=== PATIENT | female | born 1980 ===

== ENCOUNTER 2017-08-21 01:54 | Emergency (ER) | payer MEDICAID, OTHER ==
[2017-08-21 01:54] VITALS: BMI 25.4
[2017-08-21 02:09] VITALS: BP 114/75; PULSE 81; RESP 16; TEMP 98.6; O2SAT 100
--- NOTE | 2017-08-21 03:36 | ED PDOC ---
HPI: Psych/Substance Abuse Time Seen by Provider: 08/21/17 02:01 Chief Complaint (Nursing): Anxiety Chief Complaint (Provider): Anxiety History Per: Patient History/Exam Limitations: no limitations Onset/Duration Of Symptoms: Days (14 days ago) Current Symptoms Are (Timing): Still Present Additional Complaint(s): 36 y/o female with a history of anxiety and depression, presents to the ED complaining of anxiety with panic attack episodes, onset of 14 days ago. Patient reports of having trouble sleeping, and reports feeling nervous and having these panic attack episodes throughout the day, stemming from the little sleep she gets. Patient is currently not feeling depressed. She also states that she recently started and quit her new job because she couldn't handle all the stress. Of note, patient was seen at [facility] and had blood work and chest x-ray done, but was discharged without any prescription. Past Medical History Reviewed: Historical Data, Nursing Documentation, Vital Signs Vital Signs: Last Vital Signs Temp 98.6 F 08/21/17 02:03 Pulse 81 08/21/17 02:03 Resp 16 08/21/17 02:03 BP 114/75 08/21/17 02:03 Pulse Ox 100 08/21/17 02:03 - Medical History PMH: Anxiety, Depression Denies: Chronic Kidney Disease - Surgical History Surgical History: Cholecystectomy - Family History Family History: States: Unknown Family Hx - Social History Current smoker - smoking cessation education provided: No Ex-Smoker (has not smoked in the last 12 months): No Alcohol: None Drugs: Denies - Immunization History Hx Tetanus Toxoid Vaccination: No Hx Influenza Vaccination: No Hx Pneumococcal Vaccination: No - Home Medications Home Medications: Ambulatory Orders Medication Instructions Recorded Ergocalciferol (Vitamin D2) 50,000 unit PO QWK 08/20/16 [Vitamin D2] oxyCODONE/Acetaminophen [Percocet 1 tab PO Q4 PRN #14 tab 08/20/16 5/325 mg Tab] oxyCODONE/Acetaminophen [Percocet 5 - 325 mg PO Q4 PRN 08/20/16 5/325 mg Tab] Zolpidem [Ambien] 5 mg PO HS #10 tab 08/21/17 - Allergies Allergies/Adverse Reactions: Allergies Allergy/AdvReac Type Severity Reaction Status Date / Time almond Allergy Verified 01/22/18 09:00 Review of Systems ROS Statement: Except As Marked, All Systems Reviewed And Found Negative Constitutional: Negative for: Fever Cardiovascular: Negative for: Chest Pain Respiratory: Negative for: Shortness of Breath Neurological: Negative for: Other (syncope) Physical Exam - Reviewed Nursing Documentation Reviewed: Yes Vital Signs Reviewed: Yes - Physical Exam Appears: Positive for: Non-toxic, No Acute Distress Head Exam: Positive for: ATRAUMATIC, NORMAL INSPECTION Skin: Positive for: Normal Color, Warm Eye Exam: Positive for: Normal appearance, EOMI, PERRL ENT: Positive for: Normal ENT Inspection Neck: Positive for: Normal, Painless ROM, Supple Cardiovascular/Chest: Positive for: Regular Rate, Rhythm. Negative for: Murmur Respiratory: Positive for: Normal Breath Sounds. Negative for: Respiratory Distress Gastrointestinal/Abdominal: Positive for: Normal Exam, Soft. Negative for: Tenderness Back: Positive for: Normal Inspection Extremity: Positive for: Normal ROM. Negative for: Pedal Edema, Deformity Neurologic/Psych: Positive for: Alert, Oriented. Negative for: Motor/Sensory Deficits - ECG O2 Sat by Pulse Oximetry: 100 (RA) Pulse Ox Interpretation: Normal Medical Decision Making Medical Decision Making: Time: --02:54 Impression: --Anxiety and panic disorder Plan: --Crisis Evaluation Reassess --03:33 patient was evaluated by crisis, Dr. Monique, and will be discharged. Diagnosis: Anxiety Scribe Attestation: Documented by Matthew Lopes acting as a scribe for Dinh Padilla MD. Disposition - Clinical Impression Clinical Impression: Anxiety disorder - Patient ED Disposition Is Patient to be Admitted: No - Disposition Referrals: [facility] [Outside] Maria Esther Hollis MD [Primary Care Provider] - Disposition: Routine/Home Disposition Time: 03:37 Condition: GOOD Prescriptions: Zolpidem [Ambien] 5 mg PO HS #10 tab Instructions: Anxiety (ED) Print Language: MALAWIAN
== END 2017-08-21 05:00 | disposition home or self-care (01) ==
LOC: H.ER 01:54
DX: F41.0 Panic disorder [episodic paroxysmal anxiety] (principal); Z87.891 Personal history of nicotine dependence; Z86.59 Personal history of other mental and behavioral disorders

== ENCOUNTER 2018-01-20 12:58 | Emergency (ER) | payer SELFPAY ==
[2018-01-20 12:58] VITALS: BMI 25.4
[2018-01-20 13:16] VITALS: RESP 20
[2018-01-20 14:11] LABS: BASO # 0.1 K/uL (0.0-0.2); BASO % 0.7 % (0.0-2.0); EOS # 0.1 K/uL (0.0-0.7); EOS % 1.3 % (0.0-4.0); HEMOGLOBIN 14.4 g/dL (12.0-16.0); LYMPH # 1.7 K/uL (1.0-4.3); LYMPH % 22.5 % (20.0-40.0); MEAN CELL VOLUME 91.3 fl (81.0-99.0); MEAN CORPUSCULAR HEMOGLOBIN 31.3 pg (27.0-31.0); MEAN CORPUSCULAR HGB CONC 34.3 g/dL (33.0-37.0); MEAN PLATELET VOLUME 9.5 fl (7.2-11.7); MONO # 0.5 K/uL (0.0-0.8); MONO % 6.2 % (0.0-10.0); NEUT # 5.3 K/uL (1.8-7.0); NEUT % 69.3 % (50.0-75.0); RBC 4.59 Mil/uL (3.80-5.20); WHITE BLOOD COUNT 7.7 K/uL (4.8-10.8)
[2018-01-20 14:19] LABS: PARTIAL THROMBOPLASTIN TIME 34.9 Seconds (25.6-37.1); PROTHROMBIN TIME 11.4 Seconds (9.8-13.1)
[2018-01-20 14:21] LABS: ALB/GLOB RATIO 1.4 (1.0-2.1); ALBUMIN 4.6 g/dL (3.5-5.0); ALT/SGPT 37 U/L (9-52); AST/SGOT 19 U/L (14-36); BLOOD UREA NITROGEN 12 mg/dl (7-17); CALCIUM 9.5 mg/dL (8.4-10.2); GFR AFRICAN-AMERICAN > 60; GFR NON-AFRICAN AMERICAN > 60
[2018-01-20 14:32] LABS: B-TYPE NATRIURETIC PEPTIDE 38.2 pg/ml (0-450)
--- NOTE | 2018-01-20 14:58 | RAD ---
HISTORY: chest pain/ r/o infiltrate COMPARISON: Comparison made with chest radiograph dated 02/27/2016. TECHNIQUE: Chest PA and lateral FINDINGS: LUNGS: No active pulmonary disease. Again noted is a small calcified granuloma left lateral lower lung field. PLEURA: No significant pleural effusion identified. No pneumothorax apparent. CARDIOVASCULAR: Normal. OSSEOUS STRUCTURES: No significant abnormalities. VISUALIZED UPPER ABDOMEN: Normal. OTHER FINDINGS: None. IMPRESSION: No acute infiltrates. Small calcified granuloma left lateral lower lung field.
--- NOTE | 2018-01-20 15:08 | ED PDOC ---
HPI: Chest Pain Time Seen by Provider: 01/20/18 13:32 Chief Complaint (Nursing): Palpitations Chief Complaint (Provider): Palpitations History Per: Patient History/Exam Limitations: no limitations Onset/Duration Of Symptoms: Days Current Symptoms Are (Timing): Better Additional Complaint(s): 37 year old female with a history of anxiety presents to the ED complaining of sudden onset chest discomfort while cleaning furniture. Reports the symptoms lasted for several minutes with dizziness. Patients states the symptoms have improved upon arrival to the ED and states the symptoms are similar to prior anxiety in the past. However, the dizziness is new. Denies difficulty breathing , leg swelling or family history of blood clots. PMD: Yamileth Abad Past Medical History Reviewed: Historical Data, Nursing Documentation, Vital Signs Vital Signs: Last Vital Signs Temp 98 F 01/20/18 15:52 Pulse 78 01/20/18 15:52 Resp 20 01/20/18 15:52 BP 120/70 01/20/18 15:52 Pulse Ox 98 01/20/18 15:52 - Medical History PMH: Anxiety, Depression Denies: Diabetes, Hepatitis, HIV, HTN, Chronic Kidney Disease, Seizures, Sexually Transmitted Disease - Surgical History Surgical History: Cholecystectomy - Family History Family History: States: Unknown Family Hx - Social History Current smoker - smoking cessation education provided: No Alcohol: None Drugs: Denies - Immunization History Hx Tetanus Toxoid Vaccination: No Hx Influenza Vaccination: No Hx Pneumococcal Vaccination: No - Home Medications Home Medications: Ambulatory Orders Medication Instructions Recorded Ergocalciferol (Vitamin D2) 50,000 unit PO QWK 08/20/16 [Vitamin D2] oxyCODONE/Acetaminophen [Percocet 1 tab PO Q4 PRN #14 tab 08/20/16 5/325 mg Tab] oxyCODONE/Acetaminophen [Percocet 5 - 325 mg PO Q4 PRN 08/20/16 5/325 mg Tab] ALPRAZolam [Xanax] 0.25 mg PO DAILY PRN #5 tab 08/21/17 Zolpidem [Ambien] 5 mg PO HS #10 tab 08/21/17 Alprazolam [Xanax] 0.25 mg PO BID PRN #4 tablet 01/20/18 - Allergies Allergies/Adverse Reactions: Allergies Allergy/AdvReac Type Severity Reaction Status Date / Time almond Allergy ITCHING Verified 01/20/18 13:11 Review of Systems ROS Statement: Except As Marked, All Systems Reviewed And Found Negative Cardiovascular: Positive for: Chest Pain, Palpitations Respiratory: Negative for: Other (difficulty breathing) Neurological: Positive for: Dizziness Psych: Positive for: Anxiety Physical Exam - Reviewed Nursing Documentation Reviewed: Yes - Physical Exam Appears: Positive for: Non-toxic, No Acute Distress Head Exam: Positive for: ATRAUMATIC, NORMAL INSPECTION, NORMOCEPHALIC Skin: Positive for: Normal Color, Warm, Dry Eye Exam: Positive for: EOMI, Normal appearance, PERRL ENT: Positive for: Normal ENT Inspection Neck: Positive for: Normal, Painless ROM, Supple. Negative for: Decreased ROM Cardiovascular/Chest: Positive for: Regular Rate, Rhythm. Negative for: Murmur Respiratory: Positive for: Normal Breath Sounds. Negative for: Decreased Breath Sounds, Accessory Muscle Use, Respiratory Distress Gastrointestinal/Abdominal: Positive for: Normal Exam, Bowel Sounds, Soft. Negative for: Tenderness, Guarding, Rebound Back: Positive for: Normal Inspection. Negative for: L CVA Tenderness, R CVA Tenderness Extremity: Positive for: Normal ROM. Negative for: Tenderness, Pedal Edema, Deformity Neurologic/Psych: Positive for: Alert, Oriented (x3). Negative for: Motor/ Sensory Deficits - Laboratory Results Result Diagrams: 01/20/18 14:00 01/20/18 14:00 - ECG ECG: Positive for: Interpreted By Me, Viewed By Me ECG Rhythm: Positive for: Sinus Rhythm Interpretation Of ECG: no acute changes Rate: 81 O2 Sat by Pulse Oximetry: 99 Medical Decision Making Medical Decision Making: Time: 1347 Initial Plan: --EKG --B-type Natriuretic Peptide --Troponin I --CBC w/ Differential --D-Dimer [COAG] --Prothrombin Time [COAG] --PTT --Chest Two Views [RAD] --Ativan 0.5mg IVP --Ativan 0.5mg PO Once --Ativan 1mg PO --Reevaluation Patient provided Ativan for symptoms and she showed improvement. Blood work and EKG present no abnormalities. Followup PMD Heart score 1 Scribe Attestation: Documented by Rivera Edwards, acting as a scribe for Latrell Mena III, DO Provider Scribe Attestation: All medical record entries made by the Scribe were at my direction and personally dictated by me. I have reviewed the chart and agree that the record accurately reflects my personal performance of the history, physical exam, medical decision making, and the department course for this patient. I have also personally directed, reviewed, and agree with the discharge instructions and disposition. Disposition - Clinical Impression Clinical Impression: Palpitations, Anxiety - Patient ED Disposition Is Patient to be Admitted: No Counseled Patient/Family Regarding: Studies Performed, Diagnosis, Need For Followup, Rx Given (xanax rescue medication #4 only) - Disposition Referrals: [facility] [Outside] Disposition: Routine/Home Disposition Time: 15:40 Condition: STABLE Additional Instructions: PHANI ARMENDARIZ, thank you for letting us take care of you today. Your provider was Dr Latrell Mena III and you were treated for PALPITATIONS. The emergency medical care you received today was directed at your acute symptoms. If you were prescribed any medication, please fill it and take as directed. It may take several days for your symptoms to resolve. Return to the Emergency Department if your symptoms worsen, do not improve, or if you have any other problems. Please contact your doctor or call one of the physicians/clinics you have been referred to that are listed on the Patient Visit Information form that is included in your discharge packet. Bring any paperwork you were given at discharge with you along with any medications you are taking to your follow up visit. Our treatment cannot replace ongoing medical care by a primary care provider outside of the emergency department. Thank you for allowing the [facility] team to be part of your care today. If you had an X-Ray or CT scan: A Radiologist will review the ED reading if any change in treatment is needed we will contact you. If you had a blood, urine, or wound culture: It will take several days for the results, if any change in treatment is needed we will contact you. Prescriptions: Alprazolam [Xanax] 0.25 mg PO BID PRN #4 tablet PRN Reason: Anxiety Instructions: Palpitations, Anxiety, Adult (DC) Forms: [employer] [facility] (Maori) Print Language: CROATIAN
[2018-01-20 15:53] VITALS: BP 120/70; TEMP 98
--- NOTE | 2018-01-21 08:07 | CARD ---
APPROVED REPORT EKG Measurement Heart [id number] <Conclusion> Normal sinus rhythm Normal ECG
[2018-01-21 13:31] VITALS: PULSE 81; O2SAT 99
== END 2018-01-20 15:53 | disposition home or self-care (01) ==
LOC: H.ER 12:58
DX: R00.2 Palpitations (principal); F41.9 Anxiety disorder, unspecified; F32.9 Major depressive disorder, single episode, unspecified; J84.10 Pulmonary fibrosis, unspecified